=== PATIENT | female | born 1990 | race Caucasian/White ===

== ENCOUNTER 2025-11-04 18:37 | Emergency (ER) | payer MEDICARE, SELFPAY ==
--- NOTE | ~2025-11-04 | CT_ITS ---
EXAMINATION: CT abdomen pelvis w con DATE: 11/04/2025 23:41 INDICATION: Low abdominal pain. TECHNIQUE: Computed tomography (CT) of the abdomen and pelvis was performed with 100 mL Omnipaque 350 intravenous contrast. Automated exposure control and iterative reconstruction technique were employed. The dose-length product was 229.42 mGy-cm. COMPARISON: None. FINDINGS: The visualized portions of lung bases demonstrate mild atelectasis. No pleural effusion. The heart is normal. No pericardial effusion. The liver, gallbladder, spleen, pancreas, adrenal glands, and kidneys are normal. The appendix is normal. There are no dilated loops of bowel. There is a moderate volume of stool in the colon. There is liquid stool in the rectum suggesting diarrhea. There are no pathologically enlarged lymph nodes. There is no free intraperitoneal fluid. There is mild lumbar spondylosis. IMPRESSION: 1. No specific etiology for the patient's symptoms. Reviewed, dictated and finalized at location E. OPERATOR
--- NOTE | ~2025-11-04 | US_ITS ---
US pelvic complete w TV INDICATION: vaginal bleeding, pain . COMPARISON: None. TECHNIQUE: Transabdominal and transvaginal ultrasound of the pelvis was performed. FINDINGS: The uterus measures 6.3 x 2.6 x 2.5 cm. Fluid-filled endometrium and cervix is noted. The right ovary is obscured by bowel gas. The left ovary measures 2.3 x 2 x 2 cm. No free fluid is seen. Visualized portions of the bladder are normal. Hobson scale, color Doppler, and spectral waveform analysis of the ovaries was performed. There is arterial and venous flow within the left ovary. The right ovary was not visualized. Impression: Normal left ovarian Doppler. No evidence of ovarian torsion on the left. The right ovary was not visualized. IMPRESSION: Fluid-filled endometrium and cervix is noted. Left ovary is unremarkable. Right ovary is obscured by bowel gas. Reviewed, dictated and finalized at location S. MENDER Impression: Normal left ovarian Doppler. No evidence of ovarian torsion on the left. The r ight ovary was not visualized.
[2025-11-04 18:47] VITALS: BP 172/104; PULSE 110; RESP 20; TEMP 36.9; O2SAT 100
[2025-11-04 19:46] VITALS: BP 124/89; PULSE 88; RESP 17; O2SAT 99
[2025-11-04 19:48] LABS: Hematocrit 39.5 % (37.0-47.0); Hemoglobin 12.8 g/dL (12.0-15.0); Immature Granulocyte Percent A 0.3 % (0-0.5); Lymphocytes Absolute Auto 3.60 K/mm3 (0.9-3.2); Mean Corpuscular HGB Conc 32.4 g/dl (32-36); Mean Corpuscular Hemoglobin 30.1 pg (26-34); Mean Corpuscular Volume 92.9 fl (80-100); Nucleated Red Blood Cells Absolute Auto 0.000 K/mm3 (0.0-0.012); Nucleated Red Blood Cells Perc 0.0 % (0.0-0.2); Platelet Count Result 284 k/mm3 (150-375); Red Blood Count 4.25 M/mm3 (4.2-5.4); White Blood Count 10.7 K/mm3 (4.5-10.0)
[2025-11-04 19:53] LABS: Add Urine Microscopic? YES; Appearance Urine Clear (Clear); Glucose Urine UA Negative (Negative); Leukocyte Esterase Ur 2+ LEU/UL (Negative); Nitrate Urine Negative (Negative); Non Pathogenic Casts 0-2; Specific Grav Ur 1.025 (1.001-1.035)
[2025-11-04 19:56] LABS: Alanine Aminotransferase 11 U/L (6-35); Albumin Level 4.6 g/dL (3.5-5.1); Alkaline Phosphatase 44 U/L (38-126); Anion Gap 9 mmol/L (4-12); Aspartate Amino Transferase 19 U/L (14-36); Bilirubin,Total 0.3 mg/dL (0.2-1.3); Blood Urea Nitrogen 15 mg/dL (7-17); Calcium 9.1 mg/dL (8.4-10.2); Carbon Dioxide 21 mmol/L (22-30); Chloride 108 mmol/L (98-107); Estimated Glomerular Filt Rate > 60; Glucose 69 mg/dL (65-110); Lipase 64 U/L (23-300); Potassium 4.4 mmol/L (3.4-5.0); Sodium 138 mmol/L (137-145); Total Protein 7.9 g/dL (6.3-8.2)
[2025-11-04 20:01] VITALS: BP 123/87; PULSE 83; RESP 14; O2SAT 98
[2025-11-04 20:03] LABS: BEDSIDEPREGUCG Negative (Negative)
[2025-11-04 20:16] VITALS: BP 131/93; PULSE 83; RESP 15; O2SAT 99
[2025-11-04 20:31] VITALS: BP 118/88; PULSE 87; RESP 16; O2SAT 98
[2025-11-04] MEDS: HYDROmorphone HCL INJ (*CRX) 1 MG/ML SYR 0.5 MG IV PUSH ×2 (20:40→21:44)
[2025-11-04] MEDS: SODIUM CHLORIDE 0.9% IV 1,000 ML 999 ML IV CONT (20:40)
[2025-11-04] MEDS: ONDANSETRON INJ 4 MG/2 ML VIAL IV PUSH (20:40)
--- NOTE | 2025-11-04 20:47 | ED.ABDPAIN ---
HPI - Abdominal Pain General Chief Complaint: Abdominal Pain Stated Complaint: abdominal pain, vag pain, Time Seen by Provider: 11/04/25 19:40 History of Present Illness HPI narrative: Patient is a 35-year-old female who presents to the ER with complaints of lower abdominal pain and heavy menstrual bleeding. She reports she has been on continuous control since 2009 and has any menstrual cycle except when she has had previous ovarian cyst rupture. Patient reports her bleeding started last night. She endorses a history of bicornuate uterus and reports the ?right horn has been removed. Patient endorses a history of fibromyalgia, degenerative disc disease, and previous uterine surgeries. She reports her pain management doctor is her primary care provider through [facility]. Patient denies any shortness of breath, constipation, or recent fevers. Related Data Allergies Allergy/AdvReac Type Severity Reaction Status Date / Time ketorolac (From Toradol) Allergy Intermediate altered Verified 11/04/25 19:47 mental status morphine Allergy Intermediate Vomiting Verified 11/04/25 19:47 Review of Systems Review of Systems: All systems reviewed & are unremarkable except as noted in HPI and below Exam Narrative: GENERAL: Well appearing, well-nourished, non-toxic, in no acute distress. HEAD: Normocephalic, atraumatic. NECK: Supple. No adenopathy, no masses. RESPIRATORY: Airway patent, respirations nonlabored. Clear to auscultation bilaterally, no rales, rhonchi, wheezing. CARDIOVASCULAR: Regular rate and rhythm without murmurs, rubs, or gallops. Peripheral pulses 2+ and equal bilaterally. ABDOMINAL: Soft, bilateral lower quadrant tenderness, nondistended. Normoactive BS. MUSCULOSKELETAL: Moves all extremities. Strength/ROM intact without gross deformities. SKIN: Warm, dry, normal color. No rashes. NEURO: A&O X3. Speech clear. Cranial nerves II-XII intact. No ataxic movements. PSYCHIATRIC: Appropriate mood and affect. Normal interaction. Patient is argumentative at times. Course Vital Signs Vital signs: Vital Signs Temperature 36.9 C 11/04/25 18:47 Pulse Rate 110 H 11/04/25 18:47 Respiratory Rate 20 11/04/25 18:47 Blood Pressure 172/104 H 11/04/25 18:47 Pulse Oximetry 100 11/04/25 18:47 Temperature 36.9 C 11/04/25 18:47 Pulse Rate 94 11/04/25 23:01 Respiratory Rate 20 11/04/25 23:01 Blood Pressure 134/93 H 11/04/25 23:01 Pulse Oximetry 100 11/04/25 23:01 MDM MDM Narrative Medical decision making narrative: Patient is a 35-year-old female who presents to the ER with complaints of lower abdominal pain and heavy menstrual bleeding. She reports she has been on continuous control since 2009 and has any menstrual cycle except when she has had previous ovarian cyst rupture. Patient reports her bleeding started last night. She endorses a history of bicornuate uterus and reports the ?right horn has been removed. Patient endorses a history of fibromyalgia, degenerative disc disease, and previous uterine surgeries. She reports her pain management doctor is her primary care provider through [facility]. Patient denies any shortness of breath, constipation, or recent fevers. Labs Ordered: CBC, CMP, UA, UDS, lipase Imaging Ordered: CT abdomen pelvis, pelvic ultrasound Medications Ordered: 1 L normal saline IV bolus, Dilaudid 0.5 mg IV x2, Percocet p.o., Rocephin 1 g IM, Zofran 4 mg IV Results: Pt's US indicates The uterus measures 6.3 x 2.6 x 2.5 cm. Fluid-filled endometrium and cervix is noted. The right ovary is obscured by bowel gas. The left ovary measures 2.3 x 2 x 2 cm. No free fluid is seen. Visualized portions of the bladder are normal. Hobson scale, color Doppler, and spectral waveform analysis of the ovaries was performed. There is arterial and venous flow within the left ovary. The right ovary was not visualized. Consults: OBGYN (outpatient) Patient Education/Shared MDM: Results of lab work and imaging shared with patient. She endorses mild improvement of symptoms following medication administration, but reports she is still experiencing pain. Patient strongly advised to maintain hydration status upon discharge and follow-up with her OBGYN as soon as possible for further evaluation. It was explained to patient that her right ovary was not visualized, but there were no indications in the surrounding tissue of an ovarian torsion. Patient offered a prescription for oral antibiotics but she declined, reporting I can just get my primary care provider to order that. She proceeded to decline Ceftriaxone administration, although she requested the IM version instead of an IV version. Pt expresses anger that there were no significant findings on her ultrasound or abdominal CT scan, as she can't figure out why she is experiencing so much pain. Pt was reassured that nothing emergent was found, which would require her to be admitted to the hospital. Strict return precautions provided. Patient verbalized understanding and is in agreement with plan. Vital signs stable at time of discharge. All questions answered. Differential Diagnosis Differential Diagnosis: Urinary tract infection, ovarian torsion, constipation, gastroenteritis Lab Data MDM Lab Attestation statement: I personally reviewed the patient's lab results. 11/04/25 19:36 11/04/25 19:36 Labs: Lab Results 11/04/25 11/04/25 Range/Units 19:27 19:36 WBC 10.7 H (4.5-10.0) K/mm3 RBC 4.25 (4.2-5.4) M/mm3 Hgb 12.8 (12.0-15.0) g/dL Hct 39.5 (37.0-47.0) % MCV 92.9 (80-100) fl MCH 30.1 (26-34) pg MCHC 32.4 (32-36) g/dl RDW 12.4 (11.5-14.5) % Plt Count 284 (150-375) k/mm3 MPV 10.4 (7.4-10.4) fl Immature Gran % (Auto) 0.3 (0-0.5) % Neut % (Auto) 56.3 (45.5-73.1) % Lymph % (Auto) 33.8 (18.3-44.2) % [place] % (Auto) 6.2 (2.6-8.5) % Eos % (Auto) 2.3 (0-4.4) % Baso % (Auto) 1.1 (0.2-1.2) % Lymph # (Auto) 3.60 H (0.9-3.2) K/mm3 [place] # (Auto) 0.7 H (0.1-0.6) K/mm3 Eos # (Auto) 0.2 (0-0.3) K/mm3 Baso # (Auto) 0.1 (0.0-0.1) K/mm3 Abs Immat Gran (auto) 0.03 (0.00-0.031) K/mm3 Absolute Neuts (auto) 6.0 (1.3-6.7) K/mm3 Absolute Nucleated RBC 0.000 (0.0-0.012) K/mm3 Nucleated RBC % 0.0 (0.0-0.2) % Sodium 138 (137-145) mmol/L Potassium 4.4 (3.4-5.0) mmol/L Chloride 108 H (98-107) mmol/L Carbon Dioxide 21 L (22-30) mmol/L Anion Gap 9 (4-12) mmol/L BUN 15 (7-17) mg/dL Creatinine 1.03 H (0.7-1.0) mg/dL Estim Creat Clear Calc Not Reportable Estimated GFR > 60 (59 - ) Glucose 69 (65-110) mg/dL Calcium 9.1 (8.4-10.2) mg/dL Total Bilirubin 0.3 (0.2-1.3) mg/dL AST 19 (14-36) U/L ALT 11 (6-35) U/L Alkaline Phosphatase 44 (38-126) U/L Total Protein 7.9 (6.3-8.2) g/dL Albumin 4.6 (3.5-5.1) g/dL Lipase 64 (23-300) U/L Urine Color Yellow (Yellow) Urine Appearance Clear (Clear) Urine pH 5.5 (5.0-9.0) Ur Specific Gamaliel 1.025 (1.001-1.035) Urine Protein Trace (Negative) mg/dL Urine Glucose (UA) Negative (Negative) mg/dL Urine Ketones Trace H (Negative) mg/dL Ur Blood (Man) 1+ H (Negative) Urine Nitrate Negative (Negative) Urine Bilirubin Negative (Negative) Urine Urobilinogen 1.0 (<2.0) mg/dL Leukocyte Esterase Rfl 2+ H (Negative) MICHELLE/UL Urine RBC 3-5 H (0-2) /hpf Urine WBC 11-20 H (0-3) /hpf Ur Squamous Epith Cells Few (Few) /hpf Urine Bacteria None seen /hpf Urine Casts 0-2 POC Urine HCG, Qual Negative (Negative) Urine Opiates Screen Positive A (Negative) Urine Methadone Screen Negative (Negative) Ur Barbiturates Screen Negative (Negative) Ur Phencyclidine Scrn Negative (Negative) Ur Amphetamine Screen Negative (Negative) U Benzodiazepines Scrn Positive A (Negative) Urine Cocaine Screen Negative (Negative) U Cannabinoids Screen Positive A (Negative) Imaging Data Attestation: I personally reviewed and interpreted this imaging study as follows: Radiologist's impression: ITS Impressions Pelvic/Transvag US 11/04/25 22:14 Impression: Normal left ovarian Doppler. No evidence of ovarian torsion on the left. The right ovary was not visualized. IMPRESSION: Fluid-filled endometrium and cervix is noted. Left ovary is unremarkable. Right ovary is obscured by bowel gas. Discharge Plan Discharge Clinical Impression: Urinary tract infection, Lower abdominal pain, unspecified, Opiate dependence, Hematuria Patient Disposition: Home Condition: Stable Instructions: Antibiotic Form, Urinary Tract Infection in Women (ED) Additional Instructions: Please return to the ER with any worsening symptoms. Your ultrasound and CT scan were reassuring for no EMERGENT conditions, but follow-up is essential. Please follow-up with OBGYN as soon as possible for further evaluation. Take all medications as prescribed, including regularly scheduled medications. Although you declined an oral antibiotic prescription here in the ER, it is important for you to get treatment for urinary tract infection. Please call your primary care provider as soon as possible, as discussed. Patient Language: Chadian Follow-up/Referrals: PHYSICIAN NOT ON STAFF,NONSTAFF [Primary Care Provider] Stand Alone Forms: Work/School Release IP Time of Disposition: 02:18
[2025-11-04 21:26] LABS: Cannabinoid Screen Urine Positive (Negative)
[2025-11-04 23:01] VITALS: BP 134/93; PULSE 94; RESP 20; O2SAT 100
[2025-11-04] MEDS: oxyCODONE/ACETAMINOPHEN (*CRX) 10-325 MG TABLET 1 TAB PO (23:22)
== END 2025-11-05 02:27 | disposition home or self-care (01) ==
PROVIDERS: Student in an Organized Health Care Education/Training Program; Emergency Provider Registered Nurse
DX: N39.0 Urinary tract infection, site not specified (principal); R31.9 Hematuria, unspecified; R10.30 Lower abdominal pain, unspecified; F11.20 Opioid dependence, uncomplicated; M79.7 Fibromyalgia
CPT/HCPCS: 36415; 74177; 76830; 76856; 80053; 80307; 81001; 81025; 83690; 85025; 87086; 96361; 96374; 96375; 96376; 99284; A9270; J1171; J2405; J7030; Q9967